=== PATIENT | female | born 1995 | race African-American/Black ===

== ENCOUNTER 2018-07-29 11:35 | Emergency (ER) | payer MEDICAID ==
[~2018-07-29] VITALS: Ht 157.5 cm; Wt 54.4 kg
[2018-07-29 11:44] VITALS: BP_SYST 135
--- NOTE | 2018-07-29 11:53 | NUR ---
Patient to ER bed 7 to gown for evaluation. Side rails up. Report given to Dariusz GONZALEZ.
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
--- NOTE | 2018-07-29 12:15 | NUR ---
Dr. Becerra at bedside.
[2018-07-29] MEDS ORDERED: HYDROcodone/ACETAMIN 5-325 MG TAB (NORCO/ VICODIN) PO ONE (13:00)
[2018-07-29 13:15] VITALS: BP_SYST 126
--- NOTE | 2018-07-29 13:15 | NUR ---
Patient given written and verbal discharge instructions and verbalizes understanding. ER MD discussed with patient the results and treatment provided. Patient in stable condition. ID arm band removed. Rx of Motrin and [place] given. Patient educated on pain management and to follow up with PMD. Pain Scale 01/14. Opportunity for questions provided and answered. Medication side effect fact sheet provided. Addendum: 07/29/18 at 1809 by ANA LILIA Family member driving patient home. Pt instructed to not drive after taking norco or combine it with alcohol.
== END 2018-07-29 13:15 | disposition home or self-care (01) ==
LOC: SED 11:35
DX: M54.6 Pain in thoracic spine (principal); J45.909 Unspecified asthma, uncomplicated; Z88.1 Allergy status to other antibiotic agents; V89.2XXA Person injured in unspecified motor-vehicle accident, traffic, initial encounter; Y93.89 Activity, other specified; Y92.89 Other specified places as the place of occurrence of the external cause; Y99.8 Other external cause status
CPT/HCPCS: 99283

== ENCOUNTER 2021-05-05 14:28 | Observation (INO) | payer MEDICAID ==
[~2021-05-05] VITALS: Ht 157.5 cm; Wt 66.2 kg
== END 2021-05-05 14:30 | disposition home or self-care (01) ==
LOC: SPU 14:28
PROVIDERS: ADMIT Specialist; ATTEND Specialist
DX: O26.892 Other specified pregnancy related conditions, second trimester (principal); R10.9 Unspecified abdominal pain; Z3A.24 24 weeks gestation of pregnancy
CPT/HCPCS: G0378